=== PATIENT | male | born 1945 | race Caucasian/White ===

== ENCOUNTER 2018-12-09 19:46 | Emergency (ER) | payer MEDICARE ==
[~2018-12-09] VITALS: Ht 167.6 cm; Wt 77.1 kg
[2018-12-09 22:11] VITALS: BP 108/73
[2018-12-09 22:51] LABS: Urine Bacteria NONE SEEN /hpf (None Seen); Urine Blood 2+ /uL (Negative); Urine Mucus FEW (None Seen); Urine Specific Gravity 1.015 (1.001-1.035); Urine WBC <1 /hpf (0 - 3)
== END 2018-12-09 23:59 | disposition home or self-care (01) ==
LOC: ER 19:50
DX: R33.9 Retention of urine, unspecified (principal); Z98.890 Other specified postprocedural states; Z86.39 Personal history of other endocrine, nutritional and metabolic disease
CPT/HCPCS: 51702; 81001